=== PATIENT | female | born 1990 | race Caucasian/White ===

== ENCOUNTER 2016-09-10 14:24 | Emergency (ER) | payer OTHER ==
[~2016-09-10] VITALS: Ht 162.6 cm; Wt 123.3 kg
[~2016-09-10 14:24] MED LIST: IBUPROFEN600 MG PO; MOTRIN800 MG PO; NOHOMEMEDS; PRENATAL TABLE1 EACH PO; ULTRAM50 MG PO; VALIUM5 MG PO
[2016-09-10 15:02] LABS: HEMATOCRIT 39.5 % (36.0-46.0); MCHC 31.9 G/DL (30.0-36.0); MCV 78.5 FL (83-99); MEAN PLAT.VOLUME 9.8 uM^3 (9.5-12.4); PLATELET COUNT 356 K/uL (156-360); RBC DIS.WIDTH-CV 14.1 % (11.8-14.6); RED BLOOD COUNT 5.03 M/uL (3.80-5.20); WHITE BLOOD COUNT 8.4 K/uL (4.1-10.2)
[2016-09-10 15:11] LABS: CHLORIDE 106 mEq/L (99-109); POTASSIUM 4.1 mEq/L (3.7-5.4); SODIUM 140 mEq/L (136-147)
[2016-09-10 15:12] LABS: GLUCOSE 129 mg/dL (70-99)
[2016-09-10 15:14] LABS: ANION GAP 10 MEQ/L (2-14)
[2016-09-10 15:16] LABS: GFR ESTIMATE (CALCULATED) > 59 mL/min/
[2016-09-10 15:17] LABS: UREA NITROGEN (BUN) 11 mg/dL (9-23)
[2016-09-10 15:23] LABS: TROP-I INTERPRETATION NEGATIVE; TROPONIN-I < 0.01 ng/mL (0.0-0.30)
[2016-09-10 15:24] LABS: QUANTITATIVE HCG < 4.0 MIU/ML
[2016-09-10 17:04] LABS: ADD MIUA? YES; BILIRUBIN NEGATIVE; BLOOD LARGE; COLOR YELLOW ((YELLOW)); GLUCOSE (STRIP) NEGATIVE; KETONES NEGATIVE; LEUKOCYTES NEGATIVE; NITRITE NEGATIVE; PH, URINE 7.5 (5-8); PROTEIN (STRIP) NEGATIVE; SPECIFIC GRAVITY 1.016 (1.000-1.030); UROBILINOGEN 0.2 MG/DL (0.2-1.0)
[2016-09-10 17:50] LABS: BACTERIA NONE SEEN; CASTS NONE SEEN /LPF; CRYSTALS NONE SEEN; EPITHELIAL CELLS RARE; MUCUS NONE SEEN; PATHOLOGICAL CAST NONE SEEN; RED BLOOD CELLS 15-20 /HPF (0-5); SMALL ROUND CELL NONE SEEN; WHITE BLOOD CELLS 0-5 /HPF (0-5); YEAST-LIKE CELL NONE SEEN
[2016-09-10 17:53] LABS: D-DIMER ELISA 0.17 mg/L FEU (< 0.57)
[2016-09-10 19:36] VITALS: BP 131/91
== END 2016-09-10 19:36 | disposition home or self-care (01) ==
LOC: EME 14:24 → RME 14:24
PROVIDERS: Physician Assistant
DX: R07.9 Chest pain, unspecified (principal); R00.2 Palpitations
CPT/HCPCS: 71020; 80048; 81003; 84443; 84484; 84702; 85027; 85379; 93005; 99281; 99284